=== PATIENT | male | born 1950 | race Caucasian/White ===

== ENCOUNTER 2020-10-24 10:06 | Emergency (ER) | payer MEDICARE, SELFPAY ==
[2020-10-24] VITALS (8 sets, daily range): BP systolic 146–157; BP diastolic 87–96; PULSE 66–80; RESP 14–16; TEMP 36.4; O2SAT 97–99; BMI 29.5
--- NOTE | 2020-10-24 10:14 | DI.RAD.S_ITS ---
PROCEDURE: XR CHEST 1V INDICATIONS: Chest pain TECHNIQUE: One view of the chest was acquired. COMPARISON: None. FINDINGS: Surgical changes and devices: None. Lungs and pleura: Lungs are clear. No pleural effusions or pneumothorax. Mediastinum: Mediastinal contours appear normal. Heart size is normal. Bones and chest wall: No suspicious bony lesions. Overlying soft tissues appear unremarkable. IMPRESSION: No acute cardiopulmonary process demonstrated radiographically. Dictated by: José Luis Baldwin M.D. on 10/24/2020 at 10:34 Approved by: José Luis Baldwin M.D. on 10/24/2020 at 10:35
[2020-10-24 10:49] LABS: Add Manual Diff / Slide Review NO; Basophils Absolute Auto 0 /uL (0-100); Basophils Percent Auto 0.6 % (0-2); Eosinophils Absolute Auto 100 /uL (0-450); Eosinophils Percent Auto 1.9 % (2-4); Hematocrit 45.7 % (41-53); Hemoglobin 15.9 g/dL (13.5-17.5); Lymphocytes Absolute Auto 1600 /uL (1100-4500); Lymphocytes Percent Auto 29.7 % (25-40); Mean Corpuscular HGB Conc 34.8 % (30-36); Mean Corpuscular Hemoglobin 31.6 PG (26-34); Monocytes Absolute Auto 400 /uL (0-900); Monocytes Percent Auto 8.5 % (3-14); Neutrophils Absolute Auto 3100 /uL (1500-7000); Neutrophils Percent Auto 59.3 % (50-75); Platelet Count 204 X10^3/uL (150-400); Red Blood Cell Count 5.03 X10^6/uL (4.5-5.9); Red Cell Distribution Width 13.5 % (11.6-14.8); White Blood Cell Count 5.2 X10^3/uL (4.5-11.0)
--- NOTE | 2020-10-24 10:52 | ED.DIZZY ---
HPI - Dizziness General Chief Complaint: Dizziness Stated Complaint: Sent over from walk in clinic .Dizziness Time Seen by Provider: 10/24/20 10:51 Source: patient Mode of arrival: Ambulatory Limitations: no limitations History of Present Illness HPI Narrative: This is a 70-year-old male comes to the emergency department complaint of an episode about 20-30 seconds of lightheadedness and feeling sweaty this morning. Patient states he was standing in his kitchen counter about 7:00 a.m.. He had been standing for short period of time when he felt like he might pass out. He states that he was able to walk back to the chair walk back to the kitchen never had a syncopal episode. Patient states he has noted his ears have been plugged bilaterally and that this might be contributing. He states he had 1 prior episode many years ago approximately 20-30 with no other issues afterwards. He denies any vertigo type symptoms. He states that he did not have any headache, no vision changes. No issues with speech. No numbness, tingling or weakness. No chest pain or shortness of breath, no nausea, no vomiting. Patient did have a bowel movement which he states was normal in consistency and color with no melena hematochezia. Was not diarrhea or constipated. No issues with urination. Patient denies any similar symptoms since. He states that he does normally sweat very easily. And he states it was a very mild amount of sweat. He denies any regular medications. He does not follow regularly with a physician. He walks 1/2 to 4 miles daily. He has had a right meniscus repair but denies other surgeries. No allergies to medication. No tobacco, alcohol or illicit. He does take naproxen as needed. Related Data Home Medications Medication Instructions Recorded Confirmed naproxen sodium 220 mg PO BID PRN 10/24/20 10/24/20 Allergies Allergy/AdvReac Type Severity Reaction Status Date / Time No Known Drug Allergies Allergy Verified 10/24/20 10:16 Review of Systems Review of Systems ROS Unobtainable: All systems reviewed & are unremarkable except as noted in HPI and below Patient History Surgical History (Updated 10/24/20 @ 11:24 by Sobeida Li DO) S/P lateral meniscus repair of right knee Social History Smoking Status: Never smoker Smoking Status: Never smoker alcohol intake frequency: 0-2 drinks per day Substance Use Type: does not use Exam Narrative Exam Narrative: GEN: well nourished, well appearing male, alert and oriented x 3, patient appears to be in mild distress. HEENT: Atraumatic, pupils are equal round reactive to light, extraocular movements are intact, nares are clear, TMs have bilateral cerumen, unable to visualize TM, there is no conjunctival pallor. Normal speech. HEART: Regular rate and rhythm without murmur, clicks, rubs. LUNGS:Lungs clear to auscultation, no wheezes, rales, crackles, chest moves symmetrically ABD:bowel sounds normal, soft, non-tender, no guarding, rebound, rigidity, no masses noted, no hepatosplenomegaly :No CVA tenderness MSCL: Non-tender, full range of motion, normal gait NEURO:CN 2-12 intact, sensation normal SKIN: No rash, erythema other skin changes noted. Initial Vital Signs Initial Vital Signs: Vital Signs Temperature 97.6 F 10/24/20 10:14 Pulse Rate 75 10/24/20 10:14 Respiratory Rate 14 10/24/20 10:14 Blood Pressure 157/87 H 10/24/20 10:14 Pulse Oximetry 99 10/24/20 10:14 Scores GCS Madelyn coma scale eye opening: Spontaneous [place] coma scale verbal response: Orientated [place] coma scale motor response: Obey commands [place] coma scale total score: 15 Course Orders Ordered: ED Orders 10/24/20 10:14 XR chest 1V Stat EKG-12 Lead Stat 10/24/20 10:40 Complete Blood Count AUTO DIFF Stat Comprehensive Metabolic Panel Stat Lipase Stat Partial Thromboplastin Time Stat Prothrombin Time INR Stat Troponin & CK Cardiac Panel Stat Vital Signs Vital signs: Vital Signs - 8 hr 10/24/20 10:14 10/24/20 10:17 10/24/20 10:30 Temperature 97.6 F Pulse Rate 75 69 68 Respiratory Rate 14 Blood Pressure 157/87 H 149/88 H Pulse Oximetry 99 98 97 10/24/20 11:00 10/24/20 11:30 10/24/20 11:32 Temperature Pulse Rate 66 66 66 Respiratory Rate Blood Pressure 146/96 H Pulse Oximetry 97 97 98 10/24/20 11:44 10/24/20 12:06 Temperature Pulse Rate 66 80 Respiratory Rate 16 Blood Pressure 149/88 H 146/88 H Pulse Oximetry 97 99 MDM - Dizziness Lab Data Attestation: I reviewed the patient's lab results. Result diagrams: 10/24/20 10:40 10/24/20 10:40 Labs: Lab Results 10/24/20 10/24/20 10/24/20 Range/Units 10:40 10:40 10:40 WBC 5.2 (4.5-11.0) X10^3/uL RBC 5.03 (4.5-5.9) X10^6/uL Hgb 15.9 (13.5-17.5) g/dL Hct 45.7 (41-53) % MCV 91.0 (80-100) fL MCH 31.6 (26-34) PG MCHC 34.8 (30-36) % RDW 13.5 (11.6-14.8) % Plt Count 204 (150-400) X10^3/uL Neut % (Auto) 59.3 (50-75) % Lymph % (Auto) 29.7 (25-40) % Hardy % (Auto) 8.5 (3-14) % Eos % (Auto) 1.9 L (2-4) % Baso % (Auto) 0.6 (0-2) % Neut # (Auto) 3100 (8943-7832) /uL Lymph # (Auto) 1600 (1918-3056) /uL Hardy # (Auto) 400 (0-900) /uL Eos # (Auto) 100 (0-450) /uL Baso # (Auto) 0 (0-100) /uL PT 11.3 (10.1-12.7) SECONDS INR 1.0 (0.9-1.3) APTT 31 (26.4-36.2) SECONDS Sodium 138 (137-145) mmol/L Potassium 4.8 (3.4-5.1) mmol/L Chloride 103 (98-107) mmol/L Carbon Dioxide 28 (22-32) mmol/L BUN 17 (9-20) mg/dL Creatinine 1.08 (0.66-1.25) mg/dL Estimated GFR > 60.0 (>60) mL/min BUN/Creatinine Ratio 15.7 (6-22) Glucose 115 H (80-110) mg/dL Calcium 9.4 (8.4-10.2) mg/dL Total Bilirubin 0.6 (0.2-1.3) mg/dL AST 38 (17-59) IU/L ALT 36 (<50) IU/L Alkaline Phosphatase 65 (38-126) U/L Total Creatine Kinase 186 H (55-170) U/L CK-MB (CK-2) 3.67 H (<2.37) ng/mL CK-MB (CK-2) Rel Index 2.0 (1.5-5.0) % Troponin I < 0.012 (0.01-0.034) ng/mL Total Protein 7.4 (6.3-8.2) g/dL Albumin 4.4 (3.5-5.0) g/dL Globulin 3.0 (1.7-4.1) g/dL Albumin/Globulin Ratio 1.5 (1.0-2.8) Lipase 65 (23-300) U/L Imaging Data Chest x-ray: Radiologist's Impression: [address] [id number] ReportSigned Patient: Damari Adams#: [id number]: 1950Acct:[id number]/Sex: 70 / MDate of Service: 10/24/20Loc: EDAccession Number: [id number] Procedure: XR chest 1V Ordering Provider: Sobeida Li D.O. PROCEDURE: XR CHEST 1V INDICATIONS: Chest pain TECHNIQUE: One view of the chest was acquired. COMPARISON: None. FINDINGS: Surgical changes and devices: None. Lungs and pleura: Lungs are clear. No pleural effusions or pneumothorax. Mediastinum: Mediastinal contours appear normal. Heart size is normal. Bones and chest wall: No suspicious bony lesions. Overlying soft tissues appear unremarkable. IMPRESSION: No acute cardiopulmonary process demonstrated radiographically. Dictated by: José Luis Baldwin M.D. on 10/24/2020 at 10:34 Approved by: José Luis Baldwin M.D. on 10/24/2020 at 10:35 ECG Data Attestation: I personally reviewed and interpreted this ECG as follows: Prior ECG tracings: not available for review Interpretation: Sinus rhythm rate is 67 IL interval 148 QRS 86 and QTC of 395. No acute ST changes appreciated. No priors available. MDM Narrative Medical decision making narrative: This is a 70-year-old male comes with complaint lightheadedness. Patient had about a 30 second episode. No acute changes on EKG labs or additional evaluation. Patient does have little bit of cerumen impaction but possibly has a prior old perforated TM he is unsure so is not an option for debrox and he prefers not to have water irrigated in his ears. patient follow-up with PCP for his cerumen impaction. We did review that patient if he has recurrent symptoms or any new or worsening symptoms needs to return but no clear issues found today. Discharge Plan Departure Patient Disposition: Home Clinical Impression: Light-headedness Activity Restrictions/Additional Instructions: Follow up with a physician if you have any recurrent symptoms. I do recommend that you establish with a primary care physician. [facility], [facility], [facility] or [facility] are all options. Please return to the emergency department for fevers, recurrent lightheadedness, passing out, severe headaches, new chest pain, shortness of breath, persistent vomiting, new weakness numbness or tingling difficulty with speech or other new or concerning symptoms. Prescriptions: No Action naproxen sodium 220 mg Capsule 220 mg PO BID PRN (Reason: muscle aches / pain) RF: 0
[2020-10-24 10:56] LABS: Prothrombin Time 11.3 SECONDS (10.1-12.7)
[2020-10-24 10:58] LABS: PTT Partial Thromboplastin Tim 31 SECONDS (26.4-36.2)
[2020-10-24 11:00] LABS: Alanine Aminotransferase 36 IU/L (<50); Albumin 4.4 g/dL (3.5-5.0); Albumin Globulin Ratio 1.5 (1.0-2.8); Alkaline Phosphatase 65 U/L (38-126); Aspartate Aminotransferase 38 IU/L (17-59); BUN Creatinine Ratio 15.7 (6-22); Bilirubin Total 0.6 mg/dL (0.2-1.3); Blood Urea Nitrogen 17 mg/dL (9-20); Calcium 9.4 mg/dL (8.4-10.2); Carbon Dioxide 28 mmol/L (22-32); Chloride 103 mmol/L (98-107); Creatine Kinase 186 U/L (55-170); Estimated Glomerular Filt Rate > 60.0 mL/min (>60); Glucose 115 mg/dL (80-110); Lipase 65 U/L (23-300); Potassium 4.8 mmol/L (3.4-5.1); Sodium 138 mmol/L (137-145); Total Protein 7.4 g/dL (6.3-8.2)
[2020-10-24 11:11] LABS: Troponin I < 0.012 ng/mL (0.01-0.034)
[2020-10-24 11:15] LABS: Creatine Kinase MB 3.67 ng/mL (<2.37)
[2020-10-24 11:17] LABS: HEMOLYSIS 55 (0-50)
== END 2020-10-24 12:07 | disposition home or self-care (01) ==
PROVIDERS: Emergency Provider Emergency Medicine
DX: R42 Dizziness and giddiness (principal)
CPT/HCPCS: 36415; 71045; 80053; 82550; 82553; 83690; 84484; 85025; 85610; 85730; 93005; 93010; 99284